=== PATIENT | female | born 1980 | race Caucasian/White ===

== ENCOUNTER 2016-09-28 06:13 | Emergency (ER) | payer SELFPAY ==
[2016-09-28 06:22] VITALS: BP 185/117
--- NOTE | 2016-09-28 06:54 | EDM.PDOC ---
ED HPI GENERAL MEDICAL PROBLEM - General Chief Complaint: Abdominal Pain Stated Complaint: ABDOMINAL PAIN Time Seen by Provider: 09/28/16 06:26 Source of Information: Reports: Patient, RN Notes Reviewed, Significant Other ( Boyfriend) History Limitations: Reports: No Limitations - History of Present Illness INITIAL COMMENTS - FREE TEXT/NARRATIVE: The patient states that she was lying on her couch around 06:00 this morning, when she developed sudden-onset upper abdominal pain, sharp in character. It did not radiate. The patient had some nausea, but no emesis, constipation, diarrhea, or urinary symptoms. The pain resolved just a few minutes ago, without treatment. Total duration approximately 30 minutes. No prior similar symptoms. The patient states that she last ate around 18:30 last evening. She states that she began her menses yesterday. The patient does not have a PCP. Epigastric Pain Score (Numeric/FACES): 8 - Related Data Allergies Allergy/AdvReac Type Severity Reaction Status Date / Time No Known Allergies Allergy Verified 09/28/16 06:22 Home Meds: Home Meds . [No Known Home Meds] 09/28/16 [History] Past Medical History Musculoskeletal 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: Fracture Other Musculoskeletal History: wrists bilateral, leg - Past Surgical History Female Surgical 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: D&C (x 1), Tubal Ligation Social & Family History - Tobacco Use Smoking Status *Q: Current Every Day Smoker Years of Tobacco use: 23 Packs/Tins Daily: 1 - Caffeine Use Caffeine Use: Reports: Soda - Alcohol Use Alcohol Use History: Yes Alcohol Use Frequency: Socially - Recreational Drug Use Recreational Drug Use: No - Living Situation & Occupation Living situation: Reports: Single, with Significant Other (Boyfriend), with Family (2 kids) Occupation: Unemployed ED ROS GENERAL - Review of Systems Review Of Systems: See Below Constitutional: Reports: No Symptoms HEENT: Reports: No Symptoms Respiratory: Reports: No Symptoms Cardiovascular: Reports: No Symptoms Endocrine: Reports: No Symptoms GI/Abdominal: Reports: No Symptoms : Reports: No Symptoms Musculoskeletal: Reports: No Symptoms Skin: Reports: No Symptoms Neurological: Reports: No Symptoms Psychiatric: Reports: No Symptoms Hematologic/Lymphatic: Reports: No Symptoms Immunologic: Reports: No Symptoms ED EXAM, GI/ABD - Physical Exam Exam: See Below Exam Limited By: No Limitations General Appearance: Alert, WD/WN, No Apparent Distress Eyes: Bilateral: Normal Appearance, EOMI Ears: Normal External Exam, Hearing Grossly Normal Nose: Normal Inspection, No Blood Throat/Mouth: Normal Inspection, Normal Lips, Normal Voice, No Airway Compromise Head: Atraumatic, Normocephalic Neck: Normal Inspection, Full Range of Motion Respiratory/Chest: No Respiratory Distress, Lungs Clear, Normal Breath Sounds, No Accessory Muscle Use Cardiovascular: Normal Peripheral Pulses, Regular Rate, Rhythm, No Gallop, No JVD, No Murmur, No Rub GI/Abdominal: Normal Bowel Sounds, Soft, No Organomegaly, No Distention, No Abnormal Bruit, No Mass, Tenderness (Mild to right pelvis only. Nontender elsewhere.), Other (Obese) (Female) Exam: Deferred Rectal (Female) Exam: Deferred Back Exam: Normal Inspection, Full Range of Motion. No: CVA Tenderness (L), CVA Tenderness (R) Extremities: Normal Inspection, Normal Range of Motion, No Pedal Edema, Normal Capillary Refill Neurological: Alert, Oriented, Normal Cognition, No Motor/Sensory Deficits Psychiatric: Normal Affect Skin Exam: Warm, Dry, Intact, Normal Color, No Rash Lymphatic: No Adenopathy Course - Vital Signs Last Recorded V/S: Last Vital Signs Temp 36.2 C 09/28/16 06:19 Pulse 62 09/28/16 06:19 Resp 22 H 09/28/16 06:19 BP 185/117 H 09/28/16 06:19 Pulse Ox 100 09/28/16 06:19 - Re-Assessments/Exams Free Text/Narrative Re-Assessment/Exam: 09/28/16 06:49 The patient reports upper abdominal pain that lasted approximately half an hour and has now completely resolved. Given the location and severity, I suspect that the patient passed a gallstone, although there is no way to be certain. A workup was offered, but declined, which I agree with. Departure - Departure Time of Disposition: 06:49 Disposition: Home, Self-Care 01 Condition: good Clinical Impression: Abdominal pain of unknown etiology - Discharge Information Instructions: Abdominal Pain, Adult, [id number] Referrals: PCP,None [Primary Care Provider] - Betty Mann PA-C [Physician Mushroom Packer] - Forms: ED Department Discharge Additional Instructions: You were seen in the emergency room for upper abdominal pain for about half an hour this morning. In the emergency room, your abdominal exam was unremarkable. While we can't be sure, it is MOST LIKELY that you passed a gallstone. Alternatively, your pain may have been due to acid reflux. If it happens again, you can followup with Betty Mann in the clinic for evaluation, or return to the ER.
== END 2016-09-28 06:59 | disposition home or self-care (01) ==
LOC: JD.ED 06:13
DX: R10.13 Epigastric pain (principal); F17.210 Nicotine dependence, cigarettes, uncomplicated; Z98.51 Tubal ligation status
CPT/HCPCS: 99282; 99284

== ENCOUNTER 2019-06-16 03:14 | Emergency (ER) | payer BC ==
[2019-06-16 03:37] VITALS: BP 134/96; PULSE 96
--- NOTE | 2019-06-16 04:18 | EDM.PDOC ---
ED HPI GENERAL MEDICAL PROBLEM - General Chief Complaint: Chest Pain Stated Complaint: CHEST PAIN Time Seen by Provider: 06/16/19 03:38 Source of Information: Reports: Patient, Family () History Limitations: Reports: No Limitations - History of Present Illness INITIAL COMMENTS - FREE TEXT/NARRATIVE: Mrs. Ortiz is a pleasant 39-year-old woman with a past medical history significant for difficulty hearing and bipolar affective disorder, who states that she has had a cough productive of bloody mucus, and painful respirations for the past 2 days. She developed a sensation of muscle tensing, and the development of 10-15 episodes of watery diarrhea around 23:30. She was woken from sleep with left-sided chest pain, felt under her breast, as well as to her left scapular area, left shoulder, and entire left upper extremity, all the way to her fingers, along with lightheadedness and feeling hot and cold, around 00: 30 this morning. She states that her left upper extremity has numbness that shoots into her left arm. No recent fever. No recent nausea, vomiting, or constipation. No recent abdominal pain or cramps. No urinary symptoms. No prior similar symptoms. The patient states that she used her albuterol MDI prior to coming to the ED, but no other home medicines. The patient does not have a PCP. Her Fighting Vehicle Infantryman is Dr. Kwesi Kilpatrick. She did not receive an influenza vaccine this season, and declined an offer to receive one here today. Chest Pain Score (Numeric/FACES): 6 - Related Data Allergies Allergy/AdvReac Type Severity Reaction Status Date / Time No Known Allergies Allergy Verified 06/16/19 03:37 Home Meds: Home Meds . [No Known Home Meds] 09/28/16 [History] Past Medical History HEENT 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: Hard of Hearing Genitourinary 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: Urinary Incontinence (stress incontinence) Musculoskeletal 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: Fracture (right clavicle, right forearm, bilateral wrists) Psychiatric 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: Bipolar (untreated) - Past Surgical History HEENT Surgical 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: Oral Surgery (wisdom teeth extraction) Female Surgical 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: D&C (x 1), Tubal Ligation Social & Family History - Tobacco Use Smoking Status *Q: Current Every Day Smoker Years of Tobacco use: 29 Packs/Tins Daily: 1 - Caffeine Use Caffeine Use: Reports: Soda - Alcohol Use Alcohol Use History: No - Recreational Drug Use Recreational Drug Use: Yes Drug Use in Last 12 Months: No Recreational Drug Type: Reports: Marijuana/Hashish (last smoked at 16 yrs old) - Living Situation & Occupation Living situation: Reports: , with Spouse, with Family (3 kids) Occupation: Employed ([employer]) ED ROS GENERAL - Review of Systems Review Of Systems: Comprehensive ROS is negative, except as noted in HPI. ED EXAM, GENERAL - Physical Exam Exam: See Below Exam Limited By: No Limitations General Appearance: Alert, WD/WN, Anxious Eye Exam: Bilateral Eye: EOMI, Normal Inspection Ears: Normal External Exam, Hearing Loss Nose: Normal Inspection Throat/Mouth: Normal Inspection, Normal Lips, Normal Voice, No Airway Compromise Head: Atraumatic, Normocephalic Neck: Normal Inspection, Full Range of Motion Respiratory/Chest: No Respiratory Distress, Lungs Clear, Normal Breath Sounds, No Accessory Muscle Use Cardiovascular: Normal Peripheral Pulses, No Edema, No Gallop, No JVD, No Murmur , No Rub, Tachycardia (regular) Peripheral Pulses: 4+: Radial (L), Radial (R) GI/Abdominal: Normal Bowel Sounds, Soft, Non-Tender, No Organomegaly, No Distention, No Abnormal Bruit, No Mass (Female) Exam: Deferred Rectal (Female) Exam: Deferred Back Exam: Normal Inspection, Full Range of Motion, NT Extremities: Normal Inspection, Normal Range of Motion, No Pedal Edema, Normal Capillary Refill Neurological: Alert, Oriented, Normal Cognition, No Motor/Sensory Deficits Psychiatric: Anxious Skin Exam: Warm, Dry, Intact, Normal Color, No Rash EKG INTERPRETATION EKG Date: 06/16/19 Time: 03:43 Rhythm: NSR Rate (Beats/Min): 88 [place]: Normal P-Wave: Present QRS: Normal ST-T: Normal QT: Normal Comparison: NA - No Prior EKG Course - Vital Signs Last Recorded V/S: Last Vital Signs Temp 37.1 C 06/16/19 03:34 Pulse 96 06/16/19 03:34 Resp 18 06/16/19 03:34 BP 134/96 H 06/16/19 03:34 Pulse Ox 98 06/16/19 03:34 Orthostatic Blood Pressure [ 131/94 Standing] Orthostatic Blood Pressure [ 132/91 Supine] - Orders/Labs/Meds Labs: Laboratory Tests 06/16/19 06/16/19 06/16/19 Range/Units 04:28 04:28 04:28 WBC 10.23 H (3.98-10.04) K/mm3 RBC 4.71 (3.98-5.22) M/mm3 Hgb 14.5 (11.2-15.7) gm/dl Hct 42.9 (34.1-44.9) % MCV 91.1 (79.4-94.8) fl MCH 30.8 (25.6-32.2) pg MCHC 33.8 (32.2-35.5) g/dl RDW Std Deviation 46.5 H (36.4-46.3) fL Plt Count 363 (182-369) K/mm3 MPV 9.5 (9.4-12.3) fl Neutrophils % (Manual) 73 H (40-60) % Band Neutrophils % 0 (0-10) % Lymphocytes % (Manual) 11 L (20-40) % Atypical Lymphs % 0 % Monocytes % (Manual) 14 H (2-10) % Eosinophils % (Manual) 1 (0.7-5.8) % Basophils % (Manual) 1 (0.1-1.2) Platelet Estimate Adequate RBC Morph Comment Normal D-Dimer, Quantitative 0.48 (0.19-0.50) mg/L Sodium 135 L (136-145) mEq/L Potassium 3.4 L (3.5-5.1) mEq/L Chloride 100 (98-107) mEq/L Carbon Dioxide 20 L (21-32) mEq/L Anion Gap 18.4 H (5-15) BUN 6 L (7-18) mg/dL Creatinine 1.1 H (0.55-1.02) mg/dL Est Cr Clr Drug Dosing 60.56 mL/min Estimated GFR (MDRD) 55 (>60) mL/min BUN/Creatinine Ratio 5.5 L (14-18) Glucose 115 H (74-106) mg/dL Calcium 9.5 (8.5-10.1) mg/dL Magnesium 1.9 (1.8-2.4) mg/dl Total Bilirubin 0.5 (0.2-1.0) mg/dL AST 19 (15-37) U/L ALT 36 (14-59) U/L Alkaline Phosphatase 96 (46-116) U/L Troponin I < 0.017 (0.00-0.056) ng/mL Total Protein 8.0 (6.4-8.2) g/dl Albumin 3.9 (3.4-5.0) g/dl Globulin 4.1 gm/dL Albumin/Globulin Ratio 1.0 (1-2) - Re-Assessments/Exams Free Text/Narrative Re-Assessment/Exam: 06/16/19 04:13 As above, the patient is reporting left-sided chest pain that radiates down her entire left upper extremity, made worse when she breathes, and she reports 2 days of cough, along with feeling lightheaded, hot and cold, with muscle tensing tonight. The patient is afebrile, and her oxygen saturation is within normal limits on room air, however, I am somewhat concerned that the patient may have pneumonia, therefore I have ordered a workup that includes blood work, an influenza swab, a chest x-ray, and orthostatics. I have also ordered a D- dimer to rule out a PE. While a cardiac etiology is highly unlikely, I added a troponin. 06/16/19 05:38 The patient is not orthostatic. 2-view chest radiograph appears to be grossly normal. The cardiac silhouette is within normal limits. No pulmonary vascular congestion. No pleural effusions. No focal infiltrate. No pneumothorax. A telemetry-lead plug is superimposed over the dome of the right hemidiaphragm on the PA view. Formal read per the Radiologist pending. The patient's CBC is remarkable for WBC count elevated at 10.23, but with 0% bandemia. The remainder of her CBC is unremarkable. Her CMP is remarkable for a sodium at the lower limits of normal of 135, and a potassium slightly depressed at 3.4. Her bicarbonate is mildly depressed at 20 with an anion gap mildly elevated at 18.4. Her creatinine is slightly elevated at 1.1, with a BUN normal at 6. Her blood glucose is slightly elevated at 115, with the remainder of her CMP being unremarkable. Her magnesium level is within normal limits at 1.9. Her troponin is undetectably low. Her D-dimer is within normal limits at 0.48. Her influenza swab returned negative. 06/16/19 05:45 Test results discussed with the patient and her . As above, today's workup is grossly unremarkable. The patient is likely suffering from a viral URI with cough. The patient is aware that there are no treatments for a viral URI, that he will just have to run its course. I advised against her taking any [id number] cough or cold remedies, as they have been shown to be of no benefit. Additionally, I advised the patient does not take albuterol unless she has shortness of breath and wheezing with or without a cough. The patient expressed understanding. The patient requested a note for work. Departure - Departure Time of Disposition: 05:47 Disposition: Home, Self-Care 01 Condition: Good Clinical Impression: Viral URI with cough - Discharge Information *PRESCRIPTION DRUG MONITORING PROGRAM REVIEWED*: Not Applicable *COPY OF PRESCRIPTION DRUG MONITORING REPORT IN PATIENT TINO: Not Applicable Instructions: Viral Respiratory Infection, [id number] Referrals: Maine Foreman MD [Physician] - Kwesi Kilpatrick MD [Physician] - Forms: ED Department Discharge, ED Return to Work/School Form Additional Instructions: You were seen in the emergency room for left-sided chest pain radiating to your left arm, with left arm numbness, painful breathing, cough, dizziness, feeling hot and cold, and muscle tensing. Workup in the ER included blood work, positional blood pressure checks, and influenza swab, a chest x-ray, and an ECG. Your entire workup was unremarkable. You do not have pneumonia. You are not dehydrated. You do not have a blood clot in your lungs. You do not have influenza. You have not suffered a heart attack. Based on your history, physical exam, and ER tests, you most likely have a viral URI with cough, also known as a common cold. As you are aware, there are no medicines to treat a common cold - it will have to run its course. As discussed, we recommend that you not take any [id number] cough or cold remedies, as they have been shown to be of no benefit, but do have side effects , such as a stomachache. As discussed, we recommend that you not take albuterol unless you're having shortness of breath with wheezing, with or without a cough. If any other problems, please do not hesitate to return to the ER. Sepsis Event Note - Evaluation Sepsis Screening Result: No Definite Risk - Focused Exam Date Exam was Performed: 06/21/19 Time Exam was Performed: 14:33
--- NOTE | 2019-06-16 08:33 | CR ---
Chest: Two views of the chest were obtained. Comparison: No prior chest imaging. Heart size and mediastinum are normal. Lungs are clear with no acute parenchymal change seen. Bony structures are unremarkable. Impression: 1. Nothing acute is seen on two-view chest x-ray. Diagnostic code #1 This report was dictated in [place] Standard Time
== END 2019-06-16 06:03 | disposition home or self-care (01) ==
LOC: JD.ED 03:14
DX: J06.9 Acute upper respiratory infection, unspecified (principal); F17.210 Nicotine dependence, cigarettes, uncomplicated
CPT/HCPCS: 36415; 71046; 71046-26; 80053; 83735; 84484; 85007; 85027; 85379; 87804; 93005; 93010; 99282; 99285-25

== ENCOUNTER 2020-05-11 18:13 | Emergency (ER) | payer BC ==
[2020-05-11] MEDS ORDERED: Alum Hydrox/Mag Hydrox/Simeth 30 ML, Lidocaine 2% 15 ML PO ONE ×2 (18:39)
[2020-05-11] MEDS ORDERED: Sodium Chloride 0.9% 10 ML Syringe FLUSH PRN (18:39)
[2020-05-11] MEDS ORDERED: Ondansetron 4 MG/2 ML SDV IVPUSH ONE (18:39)
[2020-05-11] MEDS ORDERED: HYDROmorphone 0.5 MG/0.5 ML Syringe IVPUSH ONE ×2 (18:39→19:57)
--- NOTE | 2020-05-11 18:46 | EDM.PDOC ---
ED HPI GENERAL MEDICAL PROBLEM - General Chief Complaint: Abdominal Pain Stated Complaint: [facility] Time Seen by Provider: 05/11/20 18:33 Source of Information: Reports: Patient, RN Notes Reviewed History Limitations: Reports: No Limitations - History of Present Illness INITIAL COMMENTS - FREE TEXT/NARRATIVE: Patient is a 39-year-old female who presents by [facility] for the evaluation of her abdomen pain. Patient is complaining of abdomen pain to her upper epigastric region, notes this at a 10 out of 10. She states that she has been throwing up for the past couple of days, but has not had any nausea or vomiting today. She notes that she was recently diagnosed with uterine cancer, but cannot recall when. Patient states that the pain is constant, and feels like her stomach is on fire. She has tried heartburn relief with some relief, but nothing seems to be helping today. Patient's primary care provider is Mariah Soliz. On general appearance, patient is very diaphoretic, and stating only "help me it hurts". She does answer questions appropriately when asked, but then reverts back to "help me it hurts". Patient is in no obvious distress on the cot. O2 sats are 95% on room air, blood pressure is 116/43, respiratory rate of 20 breaths/min, temperature is 96.2 F and her pulse is counted at 45 bpm. 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 Patient denies any sort of abdomen surgeries, but did have a tubal ligation Upper Abdominal Pain Score (Numeric/FACES): 10 - Related Data Allergies Allergy/AdvReac Type Severity Reaction Status Date / Time No Known Allergies Allergy Verified 05/11/20 18:14 Home Meds: Home Meds QUEtiapine [SEROquel] 1 tab PO BEDTIME 05/11/20 [History] Rosuvastatin [Crestor] 40 mg PO 05/11/20 [History] buPROPion [buPROPion XL] 150 mg PO BID 05/11/20 [History] lamoTRIgine [Lamotrigine] 25 mg PO DAILY 05/11/20 [History] Past Medical History HEENT 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: Hard of Hearing Cardiovascular 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: Heart Murmur Genitourinary 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: Urinary Incontinence 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 TECHNICIAN 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: , Other (See Below) Other ISOTOPE TECHNICIAN History: uterine cancer dx about one month ago Musculoskeletal 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: Fracture Other Musculoskeletal History: wrists bilateral, leg Psychiatric 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: Bipolar Endocrine/Metabolic 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: Obesity/BMI 30+ Hematologic 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: Anemia Oncologic (Cancer) 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: Uterine (recent diagnosis roughly 1 month ago) - Infectious Disease History Infectious Disease 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: Chicken Pox - Past Surgical History HEENT Surgical 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: Oral Surgery Female Surgical 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: D&C, Tubal Ligation Musculoskeletal Surgical 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: ORIF Other Musculoskeletal Surgeries/Procedures:: surgery on wrists Social & Family History - Family History Family Medical History: No Pertinent Family History - Tobacco Use Tobacco Use Status *Q: Current Every Day Tobacco User Years of Tobacco use: 30 Packs/Tins Daily: 0.5 - Caffeine Use Caffeine Use: Reports: None Other Caffeine Use: states quit couple weeks ago - Recreational Drug Use Recreational Drug Use: No - Living Situation & Occupation Living situation: Reports: , with Spouse, with Family (3 kids) Occupation: Employed ([employer]) ED ROS GENERAL - Review of Systems Review Of Systems: Comprehensive ROS is negative, except as noted in HPI. ED EXAM, GI/ABD - Physical Exam Exam: See Below Exam Limited By: Uncooperative (pt does answer questions and follow commands, but will not roll over on back for examination, all she states is "help me, it hurts") General Appearance: Alert, WD/WN, No Apparent Distress (pt is laying on her left side; slightly dramatic in presentation with generalized diaphoresis.) Respiratory/Chest: No Respiratory Distress, Lungs Clear, Normal Breath Sounds, No Accessory Muscle Use, Chest Non-Tender Cardiovascular: Normal Peripheral Pulses, Regular Rate, Rhythm, No Edema GI/Abdominal Exam: Normal Bowel Sounds, Soft, No Distention, No Mass, Tender (over entire abdomen, epigastrium seems to be the worst.) Extremities: Normal Inspection, Normal Capillary Refill Neurological: Alert Psychiatric: Flat Affect Skin Exam: Intact, Normal Color, No Rash, Diaphoretic (generalized; cool and clammy) #1 Interpretation EKG Date: 05/11/20 Time: 19:11 Rhythm: NSR (Sinus bradycardia) Rate (Beats/Min): 39 [place]: Normal P-Wave: Present QRS: Normal ST-T: Normal QT: Normal Comparison: Change From Previous EKG (Reviewed from June 2019) EKG Interpretation Comments: No obvious ischemia or acute ST changes noted, reviewed by myself and Dr. Beltrán. Course - Vital Signs Last Recorded V/S: Last Vital Signs Temp 96.5 F L 05/11/20 21:20 Pulse 45 L 05/11/20 21:20 Resp 16 05/11/20 21:20 BP 170/75 H 05/11/20 19:22 Pulse Ox 97 05/11/20 21:20 - Orders/Labs/Meds Orders: Active Orders 24 hr Category Date Time Status EKG Documentation Completion [RC] STAT Care 05/11/20 18:39 Active Peripheral IV Care [RC] . DIRECTED Care 05/11/20 18:39 Active Chest 1V Frontal [CR] Stat Exams 05/11/20 18:39 Taken Chest Abdomen Pelvis w Cont [CT] Stat Exams 05/11/20 19:56 Taken CULTURE BLOOD [BC] Stat Lab 05/11/20 21:24 Ordered CULTURE BLOOD [BC] Stat Lab 05/11/20 21:24 Ordered Potassium Chloride [KCl 10 MEQ in Water 100 ML] 10 meq Med 05/11/20 21:15 Ordered Premix Bag 1 bag IV Q1H Sodium Chloride 0.9% [Normal Saline] 1,000 ml Med 05/11/20 21:19 Ordered IV ONETIME Sodium Chloride 0.9% [Normal Saline] 100 ml Med 05/11/20 20:45 Active IV ASDIRECTED Sodium Chloride 0.9% [Saline Flush] Med 05/11/20 18:39 Active 10 ml FLUSH ASDIRECTED PRN Blood Culture x2 Reflex Set [OM.PC] Stat Oth 05/11/20 21:24 Ordered Peripheral IV Insertion Adult [OM.PC] Stat Oth 05/11/20 18:39 Ordered Medication Orders Sodium Chloride (Normal Saline) 100 mls @ 100 drops/min IV ASDIRECTED ROBERT Last Admin: 05/11/20 20:46 Dose: 100 drops/min Documented by: MONSE Potassium Chloride 10 meq/ (Premix) 100 mls @ 100 mls/hr IV Q1H ROBERT Stop: 05/12/20 01:14 Last Admin: 05/11/20 21:19 Dose: 100 mls/hr Documented by: [place] Sodium Chloride (Normal Saline) 1,000 mls @ 999 mls/hr IV ONETIME ONE Stop: 05/11/20 22:19 Sodium Chloride (Saline Flush) 10 ml FLUSH ASDIRECTED PRN PRN Reason: Keep Vein Open Last Admin: 05/11/20 18:54 Dose: 10 ml Documented by: JM Labs: Laboratory Tests 05/11/20 05/11/20 05/11/20 Range/Units 18:20 18:20 18:20 WBC 20.86 H (3.98-10.04) K/mm3 RBC 4.87 (3.98-5.22) M/mm3 Hgb 15.3 (11.2-15.7) gm/dl Hct 46.1 H (34.1-44.9) % MCV 94.7 (79.4-94.8) fl MCH 31.4 (25.6-32.2) pg MCHC 33.2 (32.2-35.5) g/dl RDW Std Deviation 45.1 (36.4-46.3) fL Plt Count 425 H D (182-369) K/mm3 MPV 10.2 (9.4-12.3) fl Neut % (Auto) 72.1 H (34.0-71.1) % Lymph % (Auto) 16.5 L (19.3-51.7) % [place] % (Auto) 9.3 (4.7-12.5) % Eos % (Auto) 1.5 (0.7-5.8) Baso % (Auto) 0.3 (0.1-1.2) % Neut # (Auto) 15.02 H (1.56-6.13) K/mm3 Lymph # (Auto) 3.44 (1.18-3.74) K/mm3 [place] # (Auto) 1.95 H (0.24-0.36) K/mm3 Eos # (Auto) 0.32 (0.04-0.36) K/mm3 Baso # (Auto) 0.06 (0.01-0.08) K/mm3 Manual Slide Review Abnormal smear PT 10.4 (9.7-12.0) SECONDS INR 0.97 APTT 23.0 (21.7-31.4) SECONDS Sodium 139 (136-145) mEq/L Potassium 3.0 L (3.5-5.1) mEq/L Chloride 102 (98-107) mEq/L Carbon Dioxide 23 (21-32) mEq/L Anion Gap 17.0 H (5-15) BUN 8 (7-18) mg/dL Creatinine 1.1 H (0.55-1.02) mg/dL Est Cr Clr Drug Dosing 60.56 mL/min Estimated GFR (MDRD) 55 (>60) mL/min BUN/Creatinine Ratio 7.3 L (14-18) Glucose 173 H (74-106) mg/dL Calcium 9.0 (8.5-10.1) mg/dL Magnesium 2.0 (1.8-2.4) mg/dl Total Bilirubin 1.4 H (0.2-1.0) mg/dL GGT (5-55) U/L AST 259 H (15-37) U/L ALT 498 H (14-59) U/L Alkaline Phosphatase 326 H (46-116) U/L Troponin I < 0.017 (0.00-0.056) ng/mL NT-Pro-B Natriuret Pep (0-125) pg/mL Total Protein 7.6 (6.4-8.2) g/dl Albumin 3.7 (3.4-5.0) g/dl Globulin 3.9 gm/dL Albumin/Globulin Ratio 1.0 (1-2) Lipase (73-393) U/L Ethyl Alcohol (0.00) gm% Influenza Type A RNA (NEGATIVE) Influenza Type B RNA (NEGATIVE) SARS-CoV-2 RNA (PHAM) (NEGATIVE) 05/11/20 05/11/20 05/11/20 Range/Units 18:20 18:20 18:20 WBC (3.98-10.04) K/mm3 RBC (3.98-5.22) M/mm3 Hgb (11.2-15.7) gm/dl Hct (34.1-44.9) % MCV (79.4-94.8) fl MCH (25.6-32.2) pg MCHC (32.2-35.5) g/dl RDW Std Deviation (36.4-46.3) fL Plt Count (182-369) K/mm3 MPV (9.4-12.3) fl Neut % (Auto) (34.0-71.1) % Lymph % (Auto) (19.3-51.7) % [place] % (Auto) (4.7-12.5) % Eos % (Auto) (0.7-5.8) Baso % (Auto) (0.1-1.2) % Neut # (Auto) (1.56-6.13) K/mm3 Lymph # (Auto) (1.18-3.74) K/mm3 [place] # (Auto) (0.24-0.36) K/mm3 Eos # (Auto) (0.04-0.36) K/mm3 Baso # (Auto) (0.01-0.08) K/mm3 Manual Slide Review PT (9.7-12.0) SECONDS INR APTT (21.7-31.4) SECONDS Sodium (136-145) mEq/L Potassium (3.5-5.1) mEq/L Chloride (98-107) mEq/L Carbon Dioxide (21-32) mEq/L Anion Gap (5-15) BUN (7-18) mg/dL Creatinine (0.55-1.02) mg/dL Est Cr Clr Drug Dosing mL/min Estimated GFR (MDRD) (>60) mL/min BUN/Creatinine Ratio (14-18) Glucose (74-106) mg/dL Calcium (8.5-10.1) mg/dL Magnesium (1.8-2.4) mg/dl Total Bilirubin (0.2-1.0) mg/dL GGT 715 H (5-55) U/L AST (15-37) U/L ALT (14-59) U/L Alkaline Phosphatase (46-116) U/L Troponin I (0.00-0.056) ng/mL NT-Pro-B Natriuret Pep 125 (0-125) pg/mL Total Protein (6.4-8.2) g/dl Albumin (3.4-5.0) g/dl Globulin gm/dL Albumin/Globulin Ratio (1-2) Lipase 50484 H (73-393) U/L Ethyl Alcohol 0.00 (0.00) gm% Influenza Type A RNA (NEGATIVE) Influenza Type B RNA (NEGATIVE) SARS-CoV-2 RNA (PHAM) (NEGATIVE) 05/11/20 Range/Units 20:53 WBC (3.98-10.04) K/mm3 RBC (3.98-5.22) M/mm3 Hgb (11.2-15.7) gm/dl Hct (34.1-44.9) % MCV (79.4-94.8) fl MCH (25.6-32.2) pg MCHC (32.2-35.5) g/dl RDW Std Deviation (36.4-46.3) fL Plt Count (182-369) K/mm3 MPV (9.4-12.3) fl Neut % (Auto) (34.0-71.1) % Lymph % (Auto) (19.3-51.7) % [place] % (Auto) (4.7-12.5) % Eos % (Auto) (0.7-5.8) Baso % (Auto) (0.1-1.2) % Neut # (Auto) (1.56-6.13) K/mm3 Lymph # (Auto) (1.18-3.74) K/mm3 [place] # (Auto) (0.24-0.36) K/mm3 Eos # (Auto) (0.04-0.36) K/mm3 Baso # (Auto) (0.01-0.08) K/mm3 Manual Slide Review PT (9.7-12.0) SECONDS INR APTT (21.7-31.4) SECONDS Sodium (136-145) mEq/L Potassium (3.5-5.1) mEq/L Chloride (98-107) mEq/L Carbon Dioxide (21-32) mEq/L Anion Gap (5-15) BUN (7-18) mg/dL Creatinine (0.55-1.02) mg/dL Est Cr Clr Drug Dosing mL/min Estimated GFR (MDRD) (>60) mL/min BUN/Creatinine Ratio (14-18) Glucose (74-106) mg/dL Calcium (8.5-10.1) mg/dL Magnesium (1.8-2.4) mg/dl Total Bilirubin (0.2-1.0) mg/dL GGT (5-55) U/L AST (15-37) U/L ALT (14-59) U/L Alkaline Phosphatase (46-116) U/L Troponin I (0.00-0.056) ng/mL NT-Pro-B Natriuret Pep (0-125) pg/mL Total Protein (6.4-8.2) g/dl Albumin (3.4-5.0) g/dl Globulin gm/dL Albumin/Globulin Ratio (1-2) Lipase (73-393) U/L Ethyl Alcohol (0.00) gm% Influenza Type A RNA Negative (NEGATIVE) Influenza Type B RNA Negative (NEGATIVE) SARS-CoV-2 RNA (PHAM) Negative (NEGATIVE) Meds: Medications Generic Name Dose Route Start Last Admin Trade Name Luke PRN Reason Stop Dose Admin Sodium Chloride 100 mls @ 100 drops/min 05/11/20 20:45 05/11/20 20:46 Normal Saline IV 100 drops/min ASDIRECTED ROBERT Administration Potassium Chloride 10 meq/ 100 mls @ 100 mls/hr 05/11/20 21:15 05/11/20 21:19 Premix IV 05/12/20 01:14 100 mls/hr Q1H ROBERT Administration Sodium Chloride 1,000 mls @ 999 mls/hr 05/11/20 21:19 Normal Saline IV 05/11/20 22:19 ONETIME ONE Sodium Chloride 10 ml 05/11/20 18:39 05/11/20 18:54 Saline Flush FLUSH 10 ml ASDIRECTED PRN Administration Keep Vein Open Discontinued Medications Generic Name Dose Route Start Last Admin Trade Name Luke PRN Reason Stop Dose Admin Al Hydroxide/Mg Hydroxide 30 0 ml 05/11/20 18:39 05/11/20 18:57 ml/ Lidocaine HCl 15 ml PO 05/11/20 18:40 45 ml ONETIME ONE Administration Fentanyl 50 mcg 05/11/20 21:36 Sublimaze IVPUSH 05/11/20 21:37 ONETIME ONE Hydromorphone HCl 0.5 mg 05/11/20 18:39 05/11/20 18:54 Dilaudid IVPUSH 05/11/20 18:40 0.5 mg ONETIME ONE Administration Hydromorphone HCl 0.5 mg 05/11/20 19:57 05/11/20 20:21 Dilaudid IVPUSH 05/11/20 19:58 0.5 mg ONETIME ONE Administration Sodium Chloride 1,000 mls @ 999 mls/hr 05/11/20 19:57 05/11/20 20:23 Normal Saline IV 05/11/20 20:57 999 mls/hr ONETIME ONE Administration Promethazine HCl 25 mg/ Sodium 51 mls @ 100 mls/hr 05/11/20 19:57 05/11/20 20:23 Chloride IV 05/11/20 20:27 100 mls/hr ONETIME ONE Administration Iopamidol 50 ml 05/11/20 20:32 05/11/20 20:46 Isovue-370 (76%) IVPUSH 05/11/20 20:33 50 ml ONETIME ONE Administration Iopamidol 100 ml 05/11/20 20:32 05/11/20 20:46 Isovue-370 (76%) IVPUSH 05/11/20 20:33 100 ml ONETIME ONE Administration Ondansetron HCl 4 mg 05/11/20 18:39 05/11/20 18:50 Zofran IVPUSH 05/11/20 18:40 4 mg ONETIME ONE Administration Potassium Chloride 40 meq 05/11/20 19:34 Klor-Con M20 PO 05/11/20 19:35 ONETIME ONE - Re-Assessments/Exams Free Text/Narrative Re-Assessment/Exam: 05/11/20 18:47 Patient presents to the ED for her abdomen pain. Not sure exactly what is going on at this moment, it does appear that her abdomen is the source of her pain. Seems in the epigastrium. 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 05/11/20 19:39 Patient's labs have resulted, white cell count is elevated at 20.86, 72% neutrophils. Potassium mildly low at 3.0. Bili elevated at 1.4, GGT elevated at 715, AST at 259, ALT elevated at 498, ALP elevated at 326, troponin is within normal limits. EKG was done and does just show sinus bradycardia this was reviewed with Dr. Armando from her previous EKG done in June 2019, he states that the bradycardia may be due to vagal pain response and is nonspecific. Blood pressure is still okay at 166. I did just get off the phone with the patient's he states that they were having some issues for possible gallbladder etiology. She has been staying away from foods that are fatty, and or sodas they did [facility] and did have steak tips and burgers, and the patient developed severe abdomen pain after the dinner. Other than this, notes the patient does not drink alcohol, and smokes m arijuana only on occasion. Been also notes that the patient has an aneurysm on her aorta, she was evaluated for this, and notes this is just being observed. Did order abdomen pelvis CT with contrast. And 40 mEq p.o. potassium for supplementation at this time. 05/11/20 19:58 Patient was checked at bedside, and she states she still having quite a bit of pain and some nausea again. We will give her 25 of Phenergan, and repeat another 0.5 mg of Dilaudid. I did change the CT order to chest abdomen pelvis with contrast, due to the reports that she does have an aortic aneurysm. 05/11/20 21:07 The patient's lipase is markedly elevated at 64,608. CT has been done, and I can appreciate some stones in the gallbladder, and inflammation around the pancreas, which again with the lipase findings is suggestive of pancreatitis/biliary complications. I am awaiting CT report at this time. 05/11/20 21:48 She is Covid screen did come back negative. I have been in contact with our surgeon, Dr. Miguel Latham and he does suggest transfer to higher level care due to the CT results, CT does demonstrate an ascending aorta dilated at 4.6 cm, no dissection clear lungs and pleural space. Acute pancreatitis. Gallstones with no definable choledocholithiasis. Common bile duct is dilated at 12 mm. The liver change along with some minor small bowel ileus. I did call [facility] in [place], and I am try to get a hold of Dr. Mg, hospitalist injection molder, for admission and transfer. Departure - Departure Time of Disposition: 21:49 Disposition: Home, Self-Care 01 Condition: Good Clinical Impression: Pancreatitis, gallstone, Common bile duct dilatation - Discharge Information Referrals: PCP,Unknown [Ordering Only Provider] - Forms: ED Department Discharge Sepsis Event Note (ED) - Evaluation Sepsis Screening Result: No Definite Risk - Focused Exam Vital Signs: Vital Signs Temp Pulse Resp BP Pulse Ox 05/11/20 21:20 96.5 F L 45 L 16 97 05/11/20 19:22 40 L 18 170/75 H 95 05/11/20 18:20 96.2 F L 45 L 20 116/43 L 95 - My Orders Last 24 Hours: My Active Orders 05/11/20 18:39 EKG Documentation Completion [RC] STAT Peripheral IV Care [RC] . DIRECTED Chest 1V Frontal [CR] Stat Sodium Chloride 0.9% [Saline Flush] 10 ml FLUSH ASDIRECTED PRN Peripheral IV Insertion Adult [OM.PC] Stat 05/11/20 19:56 Chest Abdomen Pelvis w Cont [CT] Stat 05/11/20 20:45 Sodium Chloride 0.9% [Normal Saline] 100 ml IV ASDIRECTED 05/11/20 21:15 Potassium Chloride [KCl 10 MEQ in Water 100 ML] 10 meq Premix Bag 1 bag IV Q1H 05/11/20 21:19 Sodium Chloride 0.9% [Normal Saline] 1,000 ml IV ONETIME 05/11/20 21:24 CULTURE BLOOD [BC] Stat CULTURE BLOOD [BC] Stat Blood Culture x2 Reflex Set [OM.PC] Stat - Assessment/Plan Last 24 Hours: My Active Orders 05/11/20 18:39 EKG Documentation Completion [RC] STAT Peripheral IV Care [RC] . DIRECTED Chest 1V Frontal [CR] Stat Sodium Chloride 0.9% [Saline Flush] 10 ml FLUSH ASDIRECTED PRN Peripheral IV Insertion Adult [OM.PC] Stat 05/11/20 19:56 Chest Abdomen Pelvis w Cont [CT] Stat 05/11/20 20:45 Sodium Chloride 0.9% [Normal Saline] 100 ml IV ASDIRECTED 05/11/20 21:15 Potassium Chloride [KCl 10 MEQ in Water 100 ML] 10 meq Premix Bag 1 bag IV Q1H 05/11/20 21:19 Sodium Chloride 0.9% [Normal Saline] 1,000 ml IV ONETIME 05/11/20 21:24 CULTURE BLOOD [BC] Stat CULTURE BLOOD [BC] Stat Blood Culture x2 Reflex Set [OM.PC] Stat
[2020-05-11] MEDS ORDERED: Potassium Chloride 20 MEQ Tab.ER PO ONE (19:34)
[2020-05-11] MEDS ORDERED: Promethazine 25 MG in Sodium Chloride 0.9% 50 ML IV ONE (19:57)
[2020-05-11] MEDS ORDERED: Sodium Chloride 0.9% 1,000 ML IV ONE ×2 (19:57→21:19)
[2020-05-11] MEDS ORDERED: Iopamidol 755 MG/ML 50 ML Bottle IVPUSH ONE (20:32)
[2020-05-11] MEDS ORDERED: Iopamidol 755 Mg/ML 100 ML Bottle IVPUSH ONE (20:32)
[2020-05-11] MEDS ORDERED: Sodium Chloride 0.9% 100 ML IV SCH (20:45)
[2020-05-11] MEDS: Potassium Chloride 10 MEQ in Premix Bag 1 BAG IV SCH ×2 (21:19→22:40)
[2020-05-11 21:36] LABS: CORONAVIRUS COVID-19 NAA NEGATIVE (NEGATIVE)
[2020-05-11] MEDS ORDERED: fentaNYL 100 MCG/2 ML SDV IVPUSH ONE (21:36)
[2020-05-11 22:03] VITALS: BP 197/91; PULSE 47
[2020-05-11] MEDS ORDERED: Piperacillin/Tazobactam 4.5 GM in Sodium Chloride 0.9% 100 ML IV ONE (22:05)
--- NOTE | 2020-05-12 09:48 | CR ---
Chest: Portable view of the chest was obtained. Comparison: Prior chest x-ray of 06/16/[address] study performed later on the same day Heart size and mediastinum are normal. Lungs are clear with no acute parenchymal change. No discrete bony abnormality is appreciated. Previous ascending aortic aneurysm is not appreciated on this study. Impression: 1. Nothing acute is seen on portable chest x-ray. Diagnostic code #1
--- NOTE | 2020-05-12 09:55 | CT ---
CT chest Technique: Multiple axial sections were obtained from above the lung apices inferiorly through the lung bases. Intravenous contrast was utilized. Reconstructed coronal and sagittal images were obtained. Findings: Ascending aorta is aneurysmal with AP dimension of about 4.9 cm. Descending aorta measures normal. No intimal flap is seen within the thoracic aorta. No mediastinal adenopathy is seen. No pericardial thickening is appreciated. Lungs are clear with no acute parenchymal change. No pleural effusions or pneumothorax are appreciated. Bone window settings were reviewed which show no acute osseous finding. Impression: 1. Aneurysmal ascending aorta with AP dimension of 4.9 cm. 2. No dissection or other abnormality is appreciated. Diagnostic code #3 I agree with preliminary report from [facility], finalized on 05/11/20, 10:[address] abdomen and pelvis Technique: Multiple axial sections were obtained from above the dome of the diaphragm inferiorly through the pubic symphysis. Intravenous contrast was utilized. No oral contrast has been given. Reconstructed coronal and sagittal images were reviewed. Delayed images were also obtained from the top of the liver inferiorly through the pubic symphysis. Findings: Prominent edema is noted around the pancreas. There is an area of decreased enhancement noted within the body and tail of the pancreas. Edema extends into portions of the mesentery and along the anterior left pararenal space. No ascites is seen within the pelvis. Liver contains no focal abnormality but shows mild fatty infiltration. Spleen appears normal. Small hiatal hernia is seen. Adrenal glands show no nodules. Kidneys show symmetric contrast enhancement without hydronephrosis or mass. Delayed images show contrast within the ureters and within the bladder. Aorta shows mild atherosclerotic change without aneurysm. No retroperitoneal adenopathy or mesenteric abnormalities are appreciated. No findings of appendicitis are seen. Gallstones are seen within the gallbladder. CBD is slightly dilated at 1.0 cm. Slightly prominent loops of small bowel are seen most likely representing ileus. Bone window settings were reviewed which show no acute osseous finding. Impression: 1. Fairly prominent fluid around the pancreas extending into the mesentery. Diminished enhancement within portions of the body and tail of the pancreas. These findings are compatible with fairly severe pancreatitis. 2. Fatty infiltration within the liver. 3. Gallstones are present with slightly prominent CBD at 1.0 cm. 4. Slightly prominent small bowel compatible with ileus from the pancreatitis. Diagnostic code #3 I agree with preliminary report from [facility], finalized on 05/11/20, 10:29 PM EQUITIES ANALYST
== END 2020-05-11 23:10 | disposition home or self-care (01) ==
LOC: JD.ED 18:13
DX: K85.90 Acute pancreatitis without necrosis or infection, unspecified (principal); K80.20 Calculus of gallbladder without cholecystitis without obstruction; K83.8 Other specified diseases of biliary tract; D72.829 Elevated white blood cell count, unspecified; F31.9 Bipolar disorder, unspecified; F17.210 Nicotine dependence, cigarettes, uncomplicated; R00.1 Bradycardia, unspecified; E66.9 Obesity, unspecified; Z68.31 Body mass index [BMI] 31.0-31.9, adult; Z79.899 Other long term (current) drug therapy; Z20.822 Contact with and (suspected) exposure to COVID-19
CPT/HCPCS: 0240U; 36415; 71045; 71260; 74177; 80053; 80179; 82977; 83690; 83735; 83880; 84484; 85025; 85610; 85730; 87040; 93005; 96365; 96366; 96367; 96368; 96375; 96376; 99285; A9270; J1170; J2405; J2543; J2550; J3010; J3480; J7030; J7050; Q9967; 93010; 99284

== ENCOUNTER 2020-09-10 07:17 | Day surgery (SDC) | payer BC ==
--- NOTE | 2020-09-09 07:52 | PCM.PREANE ---
Preanesthetic Assessment - Procedure Proposed Procedure: Laparoscopic Assisted Vaginal Hysterectomy and midurethral sling - Anesthesia/Transfusion/Family Hx Anesthesia History: Prior Anesthesia Without Reaction Family History of Anesthesia Reaction: No Transfusion History: No Prior Transfusion(s) Intubation History: Unknown - Review of Systems General: No Symptoms Pulmonary: No Symptoms (smoker: smokes less than 1ppd times 30 years seasonal asthma: last took inhaler yesterday.), Cough Cardiovascular: No Symptoms (History of ascending aortic aneurysm: 4.9cm (asymptomatic)/ elevated lipids/HTN) Gastrointestinal: No Symptoms Neurological: No Symptoms, Headache (migraines) Other: Reports: None (bipolar disorder), Liver Problems (acute necrotizing pancreatitis and pancreatic pseudocyst/fatty liver), Depression, Anxiety - Physical Assessment NPO Status Date: 09/09/20 NPO Status Time: 22:00 Vital Signs: HR: 72 Sat: 96% Temp: 97.2 Resp: 16 B/P: 119/82 Height: 1.65 m Weight: 80 kg ASA Class: 3 Mental Status: Alert & Oriented x3 Airway Class: Mallampati = 2 Dentition: Reports: Dentures (partial upper) Thyro-Mental Finger Breadths: 3 Mouth Opening Finger Breadths: 3 ROM/Head Extension: Full Lungs: Clear to Auscultation, Normal Respiratory Effort Cardiovascular: Regular Rate, Regular Rhythm, No Murmurs - Lab Values: All labs reviewed and noted and within acceptable ranges to proceed with scheduled procedure. - Imaging/EKG Impressions: CXR: negative EKG: SB rate= 53, borderline Q's in III, and AVF that may be a normal variant CT chest: 05/2020: aortic aneurysm 4.9cm not dissecting. Echocardiogram: EF= 60-65%, mild/moderate aortic regurgitation - Allergies Allergies/Adverse Reactions: Allergies Allergy/AdvReac Type Severity Reaction Status Date / Time No Known Allergies Allergy Verified 09/08/20 14:41 - Anesthesia Plan Pre-Op Medication Ordered: None - Acknowledgements Anesthesia Type Planned: General Anesthesia Pt an Appropriate Candidate for the Planned Anesthesia: Yes Alternatives and Risks of Anesthesia Discussed w Pt/Guardian: Yes Pt/Guardian Understands and Agrees with Anesthesia Plan: Yes PreAnesthesia Questionnaire HEENT 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: Hard of Hearing, Other (See Below) Other HEENT History: has dentures, blurred vision Cardiovascular 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: Heart Murmur, High Cholesterol, Hypertension, Other (See Below) Other Cardiovascular History: dialating aortic ascending aneurysm Respiratory 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: Asthma Gastrointestinal 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: Pancreatitis Genitourinary 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: Urinary Incontinence [employer]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: , Other (See Below) Other OB/BYN History: ASCUS, CINI, heavy menses Musculoskeletal 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: Fracture Other Musculoskeletal History: right plantar fasciitis, left shoulder pain Neurological 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: Headaches, Chronic, Migraines Psychiatric 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: Anxiety, Bipolar Endocrine/Metabolic 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: Obesity/BMI 30+, Vitamin D Deficiency Hematologic 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: Anemia Immunologic 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: None Oncologic (Cancer) 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: Uterine Dermatologic 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: None - Infectious Disease History Infectious Disease 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: None - Past Surgical History Head Surgeries/Procedures: Reports: None HEENT Surgical 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: Oral Surgery Cardiovascular Surgical 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: None Respiratory Surgical 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: None GI Surgical 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: Cholecystectomy, Colonoscopy, EGD, Other (See Below) Other GI Surgeries/Procedures: pancreatic pseudocyst debridement, biliary stent placement and later removal Female Surgical 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: D&C, Tubal Ligation Endocrine Surgical 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: None Neurological Surgical 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: None Musculoskeletal Surgical 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: ORIF Other Musculoskeletal Surgeries/Procedures:: surgery on wrists Oncologic Surgical 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: None Dermatological Surgical 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: None - SUBSTANCE USE Tobacco Use Status *Q: Current Every Day Tobacco User Recreational Drug Use History: No - HOME MEDS Home Medications: Home Meds QUEtiapine [SEROquel] 100 mg PO BEDTIME 05/11/20 [History] Rosuvastatin [Crestor] 40 mg PO BEDTIME 05/11/20 [History] buPROPion [buPROPion XL] 150 mg PO DAILY 05/11/20 [History] lamoTRIgine [Lamotrigine] 25 mg PO DAILY 05/11/20 [History] - CURRENT (IN HOUSE) MEDS Current Meds: Current Medications Lactated Ringer's (Ringers, Lactated) 1,000 mls @ 125 mls/hr IV ASDIRECTED ROBERT Stop: 09/10/20 23:00 Lidocaine/Sodium Bicarbonate (Lidocaine 1%/Sod Bicarbonate In Ns 8.4% 1 Ml Syringe) 0.25 ml IDERM ONETIME PRN PRN Reason: Prior to IV Start Stop: 09/10/20 18:00 Sodium Chloride (Sodium Chloride 0.9% 10 Ml Syringe) 10 ml FLUSH ASDIRECTED PRN PRN Reason: Keep Vein Open Stop: 09/10/20 18:00
[~2020-09-10 07:17] MED LIST: Albuterol 0.083% 2.5 MG/3 ML Neb Soln NEB PRN; Lactated Ringers 1,000 ML IV SCH; Lidocaine 1%/Sod Bicarbonate in NS 8.4% 1 ML Syringe IDERM PRN; Sodium Chloride 0.9% 10 ML Syringe FLUSH PRN
[2020-09-10] MEDS ORDERED: Ketorolac 30 MG/ML SDV ONE (07:24)
[2020-09-10] MEDS ORDERED: HYDROmorphone 0.5 MG/0.5 ML Syringe ONE ×2 (07:24→09:30)
[2020-09-10] MEDS ORDERED: Dexamethasone 4 MG/ML 5 ML MDV ONE (07:24)
[2020-09-10] MEDS ORDERED: Lactated Ringers 1,000 ML ONE ×2 (07:24→09:33)
[2020-09-10] MEDS ORDERED: Lidocaine 1% 4 ML ONE (07:24)
[2020-09-10] MEDS ORDERED: ceFAZolin 1 GM Vial ONE (07:24)
[2020-09-10] MEDS ORDERED: Ondansetron 4 MG/2 ML SDV ONE (07:24)
[2020-09-10] MEDS ORDERED: Rocuronium 50 MG/5 ML Vial ONE (07:24)
[2020-09-10] MEDS ORDERED: fentaNYL 250 MCG/5 ML SDV ONE (07:25)
[2020-09-10] MEDS ORDERED: Midazolam 1 MG/ML 2 ML SDV ONE (07:25)
[2020-09-10] MEDS ORDERED: Propofol 200 MG/20 ML SDV ONE (07:25)
[2020-09-10] MEDS ORDERED: Sodium Chloride 0.9% 50 ML SDV ONE (07:38)
[2020-09-10] MEDS ORDERED: Bupivacaine 0.5% 30 ML SDV ONE (07:38)
[2020-09-10] MEDS ORDERED: Lidocaine 1% with EPINEPHrine 1:100,000 10 ML MDV ONE (07:38)
[2020-09-10] MEDS ORDERED: diphenhydrAMINE 50 MG/ML SDV IVPUSH PRN (08:31)
[2020-09-10] MEDS ORDERED: ePHEDrine 50 MG/ML SDV IVPUSH PRN (08:31)
[2020-09-10] MEDS ORDERED: fentaNYL 100 MCG/2 ML SDV IVPUSH PRN (08:31)
[2020-09-10] MEDS ORDERED: Ondansetron 4 MG/2 ML SDV IVPUSH PRN (08:31)
[2020-09-10] MEDS ORDERED: Albuterol 0.083% 2.5 MG/3 ML Neb Soln NEB PRN (08:31)
[2020-09-10] MEDS ORDERED: HYDROmorphone 0.5 MG/0.5 ML Syringe IVPUSH PRN (08:31)
--- NOTE | 2020-09-10 10:21 | PCM.POSTAN ---
POST ANESTHESIA ASSESSMENT - MENTAL STATUS Mental Status: Alert - VITAL SIGNS Vital Signs: Last Vital Signs Temp 98.9 09/10/20 1016 Pulse 77 09/10/20 1016 Resp 15 09/10/20 1016 BP 117/80 09/10/20 1016 Pulse Ox 95% 09/10/20 1016 - RESPIRATORY Respiratory Status: Respiratory Rate WNL, Airway Patent, O2 Saturation Stable - CARDIOVASCULAR CV Status: Pulse Rate WNL, Blood Pressure Stable - GASTROINTESTINAL GI Status: No Symptoms - POST OP HYDRATION Hydration Status: Adequate & Stable
--- NOTE | 2020-09-10 10:25 | PCM.OPNOTE ---
- General Post-Op/Procedure Note Date of Surgery/Procedure: 09/10/20 Operative Procedure(s): Laparoscopic-assisted vaginal hysterectomy with bilateral salpingectomy of remaining distal portion of the fallopian tube and transvaginal tape mid urethral sling Findings: Grossly normal-appearing uterus with surgically absent mid portions of the fallopian tube. Grossly normal-appearing distal portions of the fallopian tube that were removed. Grossly normal-appearing ovaries bilaterally with suspected physiologic cyst noted in the left ovary measuring approximately 1 cm. Omental adhesion from the omentum to the superior umbilicus. Grossly normal-appearing right lobe of the liver and visualized portions of the intestines. Pre Op Diagnosis: CHATO-3, abnormal Pap smear, menorrhagia and stress urinary incontinence Post-Op Diagnosis: Same Anesthesia Technique: General ET Tube Primary Surgeon: Ervin Lang Anesthesia Provider: Guillermina Monsivais Poultry Hatchery Manager: Tyler Sue Reason Poultry Hatchery Manager Was Necessary: Patient safety and reduction of morbidity and mortality Role of Poultry Hatchery Manager: Use of laparoscopic instruments during the procedure and retraction for visualization Pathology: Uterus, bilateral portions of fallopian tubes and cervix Fluid Replacement, Intraop: 1,400 Output, Urine Amount: 100 EBL in mLs: 300 Complications: None Condition: Good Free Text/Narrative:: The patient was seen in the preoperative holding area and risks, benefits, indications, and alternatives of the procedure were reviewed with the patient and she desired to proceed with a laparoscopic assisted vaginal hysterectomy, bilateral salpingectomy, possible unilateral or bilateral salpingo-oophorectomy, transvaginal mid-urethral sling and possible total abdominal hysterectomy. Consents were reviewed. The patient was taken back to the OR and given general anesthesia with an endotracheal tube which was placed without difficulty. She was placed in dorsal lithotomy position using Yellofin stirrups. She was prepped and draped in normal sterile fashion. A Fiore catheter was placed without difficulty. Attention was then turned to her umbilicus and it was injected with 0.5% Marcaine and a 5 mm stab incision was made with a scalpel and a Veress needle was then inserted through the incision. The gas was turned on, with an opening pressure of 7 mmHg. Pneumoperitoneum was continued until 15 mmHg pressure. A 5 mm trocar was then inserted under direct visualization through the incision without difficulty. Attention was then turned to the patient's right lower quadrant where an avascular space approximately mcc between the ASIS and the umbilicus was identified. Local anesthetic was injected and a 5 mm incision was made with a scalpel. A 5 mm trocar was then inserted under direct visualization of the laparoscope. Attention was then turned to the left lower quadrant, where again an avascular portion of the abdominal wall was identified approximately mcc between the ASIS and the umbilicus. Local anesthetic was injected and a scalpel was used to make a 5 mm incision. A 5 mm trocar was inserted under direct visualization with the laparoscope. Attention was then turned to the pelvis where the uterus was visualized and noted be normal in appearance with normal appearing bilateral fallopian tubes and normal-appearing bilateral ovaries. There was a surgically absent portion of the mid portions of the bilateral fallopian tubes from previous bilateral tubal ligation. The distal ends of the fallopian tubes were normal in appearance. The atraumatic grasper was then removed from the right lower trocar and a Enseal vessel sealing device was introduced and was used to transect the right fallopian tube. The mesosalpinx connecting the right fallopian tube was transected from the ovary and underlying tissue and the fallopian tube was within removed from the abdominal cavity and sent for pathology. The right round ligament was then transected using the Enseal vessel sealing device. The utero-ovarian ligament was then transected using the Enseal vessel sealing device. The right side of the uterus and broad ligament were then transected using the Enseal vessel sealing device approximately mcc down the right broad ligament. This was repeated on the patient's left side. The fallopian tube was transected from the mesosalpinx using the Enseal vessel sealing device and this was removed through the trocar without difficulty and sent for pathology. The utero-ovarian ligament was then transected using Enseal vessel sealing device. The left round ligament was transected using Enseal vessel sealing device and the broad ligament was transected approximately mcc down the left broad ligament. The pelvis was then inspected for hemostasis at this time and hemostasis was noted. All instruments were removed from the abdomen. Attention was then turned to the patient's perineum where a weighted speculum was placed into the vagina and a Arabi retractor was used to visualize the cervix. The cervix was grasped with a double-tooth tenaculum. The cervical reflection point was then injected circumferentially with 0.25% lidocaine with epinephrine. The cervix was then circumferentially incised with a scalpel. The bladder was then dissected off the pubovesical cervical fascia anteriorly with Zuniga scissors. The same procedure was performed posteriorly and the posterior cul-de-sac was entered sharply without difficulty using Zuniga scissors. At this point, an Enseal vessel sealing device was placed over the uterosacral ligaments on the patient's left side. These were cauterized and ligated with the device. This was repeated on the patient's right side. Hemostasis was assured. The cardinal ligaments were then clamped on both sides using the Enseal vessel sealing device, cauterized and transected with the device. The uterine artery on the patient's left side and the remainder of the broad ligament were serially clamped with the Enseal vessel sealing device, cauterized and transected with the device. At this time the anterior cul-de-sac was able to be entered without difficulty. The uterine artery on the patient's right side side and the remainder of the broad ligament were then serially clamped with the Enseal vessel sealing device, cauterized and transected with the device. Excellent hemostasis was noted. The cervix and uterus was able to be delivered at this time. The posterior vaginal cuff was closed with running locked sutures of 0 Monocryl. The vaginal cuff was then closed in a horizontal fashion using running locked sutures with 0 Monocryl suture. All instruments were removed from the vagina. Attention was then turned to the abdomen where a laparoscope was inserted and was used to check for hemostasis. Hemostasis was noted at this time. Attention was then turned to the pelvis again and an Allis clamp was placed approximately 2 cm below the urethral opening. A second Allis clamp was placed 2 cm below the first Allis clamp. The vaginal mucosa was then injected with 0.25% lidocaine with epinephrine. A scalpel was used to make a midline incision through the vaginal mucosa. Zuniga scissors were used to dissect the vaginal mucosa from the underlying tissue on the patient's right side. This was carried out to the pubic rami. This was repeated on the left side and completed without difficulty. Attention was then turned to the patient's mons and the skin was injected with 0.25% lidocaine with epinephrine in the bilateral sides approximately 2 cm from midline. A stab incision was made with a scalpel on the bilateral sides without complications. The urethral sling hook was then used on the patient's left side and placed through the stab incision and with a finger in the vagina behind the pubic rami, the tip of the hook was felt and then directed out through the midline vaginal incision. Attention was then turned to the patient's right side where, again, the urethral sling hook was placed through the stab incision and with a finger in the vagina was directed posterior to the lateral pubic rami and directed through the vaginal incision. The bladder was then filled with 250 mL of sterile saline through the previously inserted urethral catheter. The urethral catheter was removed at this time. A simple cystoscopy was performed and evaluation of the bilateral bladder contreras did not show any evidence of injury. There was bilateral ureteral jetting noted with cystoscopy. The cystoscopy portion of the procedure was completed at this time. The ends of the tape was attached to the hooks and pulled through, making sure that the tape was flat under the patient's urethra. A Zuniga scissors was used between the urethral sling and urethra to allow for a tension-free placement of the tape. The ends of the tape were then cut at the level of the skin on the patient on both sides at the stab incisions. Attention was then tur abebe to the midline incision, which was closed using 3-0 Monocryl in a running fashion. The skin incisions were closed using Dermabond glue. The case was complete at this time. The gas was then evacuated from the peritoneum and trocars removed. These were closed using 4-0 Monocryl suture and Dermabond. The patient was awoken from general anesthesia and taken to the PACU for recovery in stable condition. She will be discharged to home once she is able to meet all postoperative milestones including tolerating small amount of oral intake and liquids, ambulate without difficulty, her pain controlled with oral medications and able to void without difficulty. She will follow-up in the clinic in 2 weeks or earlier as needed. Sponge, lap, needle, and instrument counts were correct x 2. Review of images from the case IMG 001: Right ovary and distal portion of the fallopian tubes that were grossly normal in appearance. Small visualized portion of the uterus and the right cornua grossly normal in appearance. IMG 002: Small portion of the large intestine and right lobe of the liver grossly normal in appearance. IMG 003: Left broad ligament surgical bed with hemostasis noted. IMG 004: Right broad ligament surgical bed with hemostasis noted. IMG 005: Vaginal cuff with hemostasis noted after hysterectomy. Ervin Lang MD 10:35 AM 09/10/2020
--- NOTE | 2020-09-10 10:45 | PCM48HPAN ---
Post Anesthesia Note - EVALUATION WITHIN 48HRS OF ANESTHETIC Vital Signs in Normal Range: Yes Patient Participated in Evaluation: Yes Respiratory Function Stable: Yes Airway Patent: Yes Cardiovascular Function Stable: Yes Hydration Status Stable: Yes Pain Control Satisfactory: Yes Nausea and Vomiting Control Satisfactory: Yes Mental Status Recovered: Yes Vital Signs: Last Vital Signs Temp 37.1 C 09/10/20 10:30 Pulse 66 09/10/20 10:30 Resp 14 09/10/20 10:30 BP 119/77 09/10/20 10:30 Pulse Ox 99 09/10/20 10:30
[2020-09-10 12:31] VITALS: BP 136/90; PULSE 72
== END 2020-09-10 12:30 | disposition home or self-care (01) ==
LOC: JD.SDS 07:17
PROVIDERS: ATTEND Obstetrics & Gynecology
DX: D06.9 Carcinoma in situ of cervix, unspecified (principal); N80.0 Endometriosis of uterus; N39.3 Stress incontinence (female) (male); I10 Essential (primary) hypertension; E78.5 Hyperlipidemia, unspecified; J45.909 Unspecified asthma, uncomplicated; E78.00 Pure hypercholesterolemia, unspecified; F17.210 Nicotine dependence, cigarettes, uncomplicated; E66.9 Obesity, unspecified; Z68.30 Body mass index [BMI] 30.0-30.9, adult; Z79.899 Other long term (current) drug therapy; Z98.890 Other specified postprocedural states
CPT/HCPCS: 36415; 57288; 58552; 81003; 81025; 86850; 86900; 86901; C1771; J0690; J1100; J1170; J1885; J2250; J2370; J2405; J2704; J2710; J3010; J3490; J7120; 00944

== ENCOUNTER 2022-02-28 14:33 | Emergency (ER) | payer BC ==
[2022-02-28 14:58] VITALS: PULSE 60
[2022-02-28 17:53] VITALS: BP 127/88
== END 2022-02-28 17:50 | disposition home or self-care (01) ==
LOC: JD.ED 14:33
DX: K62.5 Hemorrhage of anus and rectum (principal); E66.9 Obesity, unspecified; Z68.30 Body mass index [BMI] 30.0-30.9, adult; Z79.899 Other long term (current) drug therapy; Z90.49 Acquired absence of other specified parts of digestive tract
CPT/HCPCS: 36415; 74019; 74019-26; 80053; 83690; 85025; 85610; 99283

== ENCOUNTER 2022-08-04 15:41 | Emergency (ER) | payer BC ==
[2022-08-04 16:01] VITALS: BP 121/70; PULSE 60
[2022-08-04] MEDS ORDERED: Ondansetron 4 MG/2 ML SDV IVPUSH ONE (16:03)
[2022-08-04] MEDS ORDERED: Sodium Chloride 0.9% 1,000 ML IV ONE (16:03)
[2022-08-04] MEDS ORDERED: Sodium Chloride 0.9% 10 ML Syringe FLUSH PRN (16:03)
[2022-08-04] MEDS ORDERED: HYDROmorphone 1 MG/ML Syringe IVPUSH STA (16:07)
[2022-08-04 17:14] LABS: ESTIMATED GFR 81 mL/min (>60)
== END 2022-08-04 18:28 | disposition home or self-care (01) ==
LOC: JD.ED 15:41
DX: R10.12 Left upper quadrant pain (principal); E66.9 Obesity, unspecified; Z68.31 Body mass index [BMI] 31.0-31.9, adult; Z90.49 Acquired absence of other specified parts of digestive tract; Z79.899 Other long term (current) drug therapy
CPT/HCPCS: 36415; 80053; 83690; 83735; 85025; 86140; 96361; 96374; 96375; 99284; J1170; J2405; J3490; J7030; 99283

== ENCOUNTER 2022-08-11 14:08 | Emergency (ER) | payer BC ==
[2022-08-11] MEDS ORDERED: Ondansetron 4 MG/2 ML SDV IVPUSH ONE (14:56)
[2022-08-11] MEDS ORDERED: HYDROmorphone 0.5 MG/0.5 ML Syringe IVPUSH ONE (14:56)
[2022-08-11] MEDS ORDERED: Sodium Chloride 0.9% 10 ML Syringe FLUSH PRN (14:56)
[2022-08-11] MEDS ORDERED: Sodium Chloride 0.9% 1,000 ML IV SCH (15:00)
[2022-08-11 17:57] VITALS: BP 113/71; PULSE 78
== END 2022-08-11 17:47 | disposition home or self-care (01) ==
LOC: JD.ED 14:08
DX: K29.70 Gastritis, unspecified, without bleeding (principal); E66.9 Obesity, unspecified; Z68.31 Body mass index [BMI] 31.0-31.9, adult; Z79.899 Other long term (current) drug therapy
CPT/HCPCS: 36415; 80053; 83690; 85025; 96361; 96374; 96375; 99284; J1170; J2405; J3490; J7030; 99283

== ENCOUNTER 2024-01-12 16:03 | Emergency (ER) | payer BC ==
[2024-01-12 17:35] LABS: BASOPHILS ABSOLUTE AUTO 0.1 K/mm3 (0.0-0.2); BASOPHILS PERCENT AUTO 0.7 % (0.0-1.0); EOSINOPHILS ABSOLUTE AUTO 0.2 K/mm3 (0.0-0.4); EOSINOPHILS PERCENT AUTO 2.9 % (0.0-6.0); HEMATOCRIT 42.8 % (37.0-47.0); HEMOGLOBIN 14.7 gm/dl (12.0-16.0); IMMATURE GRAN ABSOLUTE AUTO 0.02 K/mm3 (0.00-0.05); IMMATURE GRAN PERCENT AUTO 0.3 % (0.0-0.4); LYMPHOCYTES ABSOLUTE AUTO 1.7 K/mm3 (1.0-4.8); LYMPHOCYTES PERCENT AUTO 22.6 % (24.0-44.0); MEAN CORPUSCULAR HEMOGLOBIN 31.7 pg (28.0-32.0); MEAN CORPUSCULAR HGB CONC 34.3 g/dl (32.0-36.0); MEAN CORPUSCULAR VOLUME 92.2 fl (83.0-99.0); MEAN PLATELET VOLUME 10.1 fl (9.4-12.3); MONOCYTES ABSOLUTE AUTO 0.5 K/mm3 (0.0-0.8); MONOCYTES PERCENT AUTO 7.3 % (0.0-8.0); NEUTROPHILS ABSOLUTE AUTO 4.9 K/mm3 (1.8-7.7); NEUTROPHILS PERCENT AUTO 66.2 % (41.0-71.0); PLATELET COUNT,PLT 236 K/mm3 (150-400); RED BLOOD CELL COUNT 4.64 M/mm3 (4.10-5.30); WHITE BLOOD CELL COUNT,WBC 7.36 K/mm3 (3.9-11.3)
[2024-01-12] MEDS: Sodium Chloride 0.9% 10 ML Syringe FLUSH ONE (17:39)
[2024-01-12] MEDS: Iopamidol 612 MG/ML 100 ML Bottle IVPUSH ONE (17:39)
[2024-01-12 17:42] LABS: A/G RATIO 1.2 (1-2); ALANINE AMINOTRANSFERASE,ALT 45 U/L (14-59); ALKALINE PHOSPHATASE 69 U/L (46-116); ANION GAP 15.1 (5-15); ASPARTATE AMNIOTRANSFERASE,AST 23 U/L (15-37); BILIRUBIN TOTAL 0.6 mg/dL (0.2-1.0); BLOOD UREA NITROGEN,BUN 11 mg/dL (7-18); BUN/CREATININE RATIO 12.2 (14-18); CALCIUM 9.2 mg/dL (8.5-10.1); CARBON DIOXIDE,CO2 23 mEq/L (21-32); CHLORIDE,CL 102 mEq/L (98-107); CREATININE 0.9 mg/dL (0.55-1.02); EST CRCL DRUG DOSING (CG) 71.03 mL/min; ESTIMATED GFR 80 mL/min (>60); GLUCOSE RANDOM 128 mg/dL (70-99); LIPASE 128 U/L (16-77); POTASSIUM,K 4.1 mEq/L (3.5-5.1); PROTEIN TOTAL,TP 7.3 g/dl (6.4-8.2); SODIUM,NA 136 mEq/L (136-145)
[2024-01-12 17:50] LABS: C-REACTIVE PROTEIN < 0.05 mg/dL (<0.30)
[2024-01-12] MEDS: Ondansetron 4 MG/2 ML SDV IVPUSH ONE (18:47)
[2024-01-12] MEDS: Alum Hydrox/Mag Hydrox/Simeth 30 ML, Lidocaine 2% 15 ML PO ONE (18:48)
[2024-01-12 19:37] VITALS: BP 101/58; PULSE 78
== END 2024-01-12 19:34 | disposition home or self-care (01) ==
LOC: JD.ED 16:03
DX: R10.12 Left upper quadrant pain (principal); E66.9 Obesity, unspecified; F17.210 Nicotine dependence, cigarettes, uncomplicated; Z79.84 Long term (current) use of oral hypoglycemic drugs; Z79.899 Other long term (current) drug therapy; Z90.49 Acquired absence of other specified parts of digestive tract; Z68.29 Body mass index [BMI] 29.0-29.9, adult
CPT/HCPCS: 36415; 74177; 80053; 83690; 85025; 86140; 96374; 99284; A9270; J2405; J3490; Q9967; 99283

== ENCOUNTER 2024-04-02 19:42 | Inpatient (IN) | payer BC, OTHER ==
[2024-04-02] MEDS: Sodium Chloride 0.9% 1,000 ML IV ONE (20:30)
[2024-04-02] MEDS: Ondansetron 4 MG/2 ML SDV IVPUSH ONE (20:30)
[2024-04-02 20:35] LABS: BASOPHILS PERCENT AUTO 0.4 % (0.0-1.0); EOSINOPHILS ABSOLUTE AUTO 0.1 K/mm3 (0.0-0.4); EOSINOPHILS PERCENT AUTO 1.5 % (0.0-6.0); HEMATOCRIT 39.7 % (37.0-47.0); HEMOGLOBIN 13.9 gm/dl (12.0-16.0); IMMATURE GRAN ABSOLUTE AUTO 0.02 K/mm3 (0.00-0.05); IMMATURE GRAN PERCENT AUTO 0.2 % (0.0-0.4); LYMPHOCYTES ABSOLUTE AUTO 1.8 K/mm3 (1.0-4.8); LYMPHOCYTES PERCENT AUTO 19.6 % (24.0-44.0); MEAN CORPUSCULAR HEMOGLOBIN 31.5 pg (28.0-32.0); MEAN PLATELET VOLUME 9.8 fl (9.4-12.3); MONOCYTES ABSOLUTE AUTO 0.6 K/mm3 (0.0-0.8); MONOCYTES PERCENT AUTO 6.5 % (0.0-8.0); NEUTROPHILS ABSOLUTE AUTO 6.4 K/mm3 (1.8-7.7); NEUTROPHILS PERCENT AUTO 71.8 % (41.0-71.0); PLATELET COUNT,PLT 177 K/mm3 (150-400); RED BLOOD CELL COUNT 4.41 M/mm3 (4.10-5.30); WHITE BLOOD CELL COUNT,WBC 8.92 K/mm3 (3.9-11.3)
[2024-04-02 20:57] LABS: A/G RATIO 1.1 (1-2); ALANINE AMINOTRANSFERASE,ALT 38 U/L (14-59); ALBUMIN 3.7 g/dl (3.4-5.0); ALKALINE PHOSPHATASE 69 U/L (46-116); ANION GAP 13.8 (5-15); ASPARTATE AMNIOTRANSFERASE,AST 17 U/L (15-37); BILIRUBIN TOTAL 0.6 mg/dL (0.2-1.0); BLOOD UREA NITROGEN,BUN 11 mg/dL (7-18); BUN/CREATININE RATIO 13.8 (14-18); C-REACTIVE PROTEIN 0.29 mg/dL (<0.30); CALCIUM 9.1 mg/dL (8.5-10.1); CARBON DIOXIDE,CO2 25 mEq/L (21-32); CHLORIDE,CL 104 mEq/L (98-107); CREATININE 0.8 mg/dL (0.55-1.02); ESTIMATED GFR 93 mL/min (>60); GLUCOSE RANDOM 104 mg/dL (70-99); LIPASE 67 U/L (16-77); POTASSIUM,K 3.8 mEq/L (3.5-5.1); PROTEIN TOTAL,TP 7.2 g/dl (6.4-8.2); SODIUM,NA 139 mEq/L (136-145)
[2024-04-02 20:58] LABS: TROPONIN I HIGH SENSITIVITY < 4 pg/mL (<=51)
[2024-04-02] MEDS: Iopamidol 612 MG/ML 100 ML Bottle IVPUSH ONE (21:42)
[2024-04-02] MEDS: Lactated Ringers 1,000 ML IV ONE (23:15)
[2024-04-02] MEDS ORDERED: Acetaminophen 325 MG Tab PO PRN (23:32)
[2024-04-02] MEDS ORDERED: Naloxone 0.4 MG/ML SDV IVPUSH PRN (23:35)
[2024-04-02] MEDS: Morphine 4 MG/ML Syringe IVPUSH PRN (23:51)
[2024-04-03] MEDS: oxyCODONE 5 MG Tab PO PRN (03:05)
[2024-04-03 07:35] LABS: BASOPHILS ABSOLUTE AUTO 0.1 K/mm3 (0.0-0.2); BASOPHILS PERCENT AUTO 0.6 % (0.0-1.0); EOSINOPHILS ABSOLUTE AUTO 0.3 K/mm3 (0.0-0.4); EOSINOPHILS PERCENT AUTO 3.6 % (0.0-6.0); HEMATOCRIT 37.6 % (37.0-47.0); HEMOGLOBIN 12.8 gm/dl (12.0-16.0); IMMATURE GRAN ABSOLUTE AUTO 0.02 K/mm3 (0.00-0.05); IMMATURE GRAN PERCENT AUTO 0.2 % (0.0-0.4); LYMPHOCYTES ABSOLUTE AUTO 2.9 K/mm3 (1.0-4.8); LYMPHOCYTES PERCENT AUTO 35.4 % (24.0-44.0); MEAN CORPUSCULAR HEMOGLOBIN 31.2 pg (28.0-32.0); MEAN CORPUSCULAR VOLUME 91.7 fl (83.0-99.0); MEAN PLATELET VOLUME 9.7 fl (9.4-12.3); MONOCYTES ABSOLUTE AUTO 0.7 K/mm3 (0.0-0.8); MONOCYTES PERCENT AUTO 7.8 % (0.0-8.0); NEUTROPHILS ABSOLUTE AUTO 4.4 K/mm3 (1.8-7.7); NEUTROPHILS PERCENT AUTO 52.4 % (41.0-71.0); PLATELET COUNT,PLT 182 K/mm3 (150-400); WHITE BLOOD CELL COUNT,WBC 8.31 K/mm3 (3.9-11.3)
[2024-04-03] MEDS: Lactated Ringers 1,000 ML IV SCH (07:54)
[2024-04-03 07:58] LABS: MAGNESIUM 1.9 mg/dL (1.8-2.4); PHOSPHORUS 3.3 mg/dL (2.6-4.7)
[2024-04-03 08:18] LABS: A/G RATIO 1.1 (1-2); ALBUMIN 3.4 g/dl (3.4-5.0); ANION GAP 14.9 (5-15); BILIRUBIN TOTAL 0.7 mg/dL (0.2-1.0); CALCIUM 8.5 mg/dL (8.5-10.1); CREATININE 0.9 mg/dL (0.55-1.02); EST CRCL DRUG DOSING (CG) 71.03 mL/min; POTASSIUM,K 3.9 mEq/L (3.5-5.1); PROTEIN TOTAL,TP 6.6 g/dl (6.4-8.2)
[2024-04-03] MEDS ORDERED: Polyethylene Glycol 3350 Powder 17 GM Packet PO PRN (08:48)
[2024-04-03] MEDS ORDERED: HYDROmorphone 0.5 MG/0.5 ML Syringe IVPUSH PRN (08:48)
[2024-04-03] MEDS: Enoxaparin 40 MG/0.4 ML Syringe SUBCUT SCH (09:45)
[2024-04-03] MEDS: Ondansetron 4 MG/2 ML SDV IV PRN (10:50)
[2024-04-03] MEDS ORDERED: 50% Dextrose in Water 50 ML Syringe IVPUSH PRN (11:59)
[2024-04-03] MEDS ORDERED: Albuterol 6.7 GM Inhaler INH PRN (12:00)
[2024-04-03] MEDS: Pantoprazole 40 MG Tab.CR PO SCH (13:03)
[2024-04-03] MEDS: Insulin Lispro 100 Unit/ML 3 ML KwikPen SUBCUT SCH (17:26)
[2024-04-03] MEDS: QUEtiapine 100 MG Tab PO SCH (20:30)
[2024-04-03] MEDS: Rosuvastatin 10 MG Tab PO SCH (20:30)
[2024-04-04 04:40] LABS: BASOPHILS PERCENT AUTO 0.4 % (0.0-1.0); EOSINOPHILS ABSOLUTE AUTO 0.2 K/mm3 (0.0-0.4); EOSINOPHILS PERCENT AUTO 4.3 % (0.0-6.0); HEMATOCRIT 35.6 % (37.0-47.0); IMMATURE GRAN ABSOLUTE AUTO 0.01 K/mm3 (0.00-0.05); IMMATURE GRAN PERCENT AUTO 0.2 % (0.0-0.4); LYMPHOCYTES ABSOLUTE AUTO 1.9 K/mm3 (1.0-4.8); LYMPHOCYTES PERCENT AUTO 36.5 % (24.0-44.0); MEAN CORPUSCULAR HEMOGLOBIN 30.5 pg (28.0-32.0); MEAN CORPUSCULAR HGB CONC 33.7 g/dl (32.0-36.0); MEAN CORPUSCULAR VOLUME 90.4 fl (83.0-99.0); MEAN PLATELET VOLUME 9.8 fl (9.4-12.3); MONOCYTES ABSOLUTE AUTO 0.5 K/mm3 (0.0-0.8); MONOCYTES PERCENT AUTO 8.9 % (0.0-8.0); NEUTROPHILS ABSOLUTE AUTO 2.6 K/mm3 (1.8-7.7); NEUTROPHILS PERCENT AUTO 49.7 % (41.0-71.0); PLATELET COUNT,PLT 141 K/mm3 (150-400); RED BLOOD CELL COUNT 3.94 M/mm3 (4.10-5.30); WHITE BLOOD CELL COUNT,WBC 5.31 K/mm3 (3.9-11.3)
[2024-04-04 05:32] LABS: ALBUMIN 3.2 g/dl (3.4-5.0); BILIRUBIN TOTAL 0.6 mg/dL (0.2-1.0); BUN/CREATININE RATIO 11.4 (14-18); CALCIUM 8.4 mg/dL (8.5-10.1); CREATININE 0.7 mg/dL (0.55-1.02); EST CRCL DRUG DOSING (CG) 91.32 mL/min; PROTEIN TOTAL,TP 6.3 g/dl (6.4-8.2)
[2024-04-04 14:29] VITALS: BP 146/84; PULSE 71
== END 2024-04-04 13:57 | disposition home or self-care (01) | DRG 282 ==
LOC: JD.ED 19:42 → JD.MS 04-03 00:08
PROVIDERS: ADMIT Student in an Organized Health Care Education/Training Program; ATTEND Student in an Organized Health Care Education/Training Program
DX: K85.90 Acute pancreatitis without necrosis or infection, unspecified (principal); F31.9 Bipolar disorder, unspecified; I71.40 Abdominal aortic aneurysm, without rupture, unspecified; K22.70 Barrett's esophagus without dysplasia; F17.210 Nicotine dependence, cigarettes, uncomplicated; E66.9 Obesity, unspecified; F15.90 Other stimulant use, unspecified, uncomplicated; F12.90 Cannabis use, unspecified, uncomplicated; E11.9 Type 2 diabetes mellitus without complications; I10 Essential (primary) hypertension; E78.5 Hyperlipidemia, unspecified; J45.909 Unspecified asthma, uncomplicated; F10.90 Alcohol use, unspecified, uncomplicated; Z90.49 Acquired absence of other specified parts of digestive tract; Z79.1 Long term (current) use of non-steroidal anti-inflammatories (NSAID); Z90.710 Acquired absence of both cervix and uterus; Z79.51 Long term (current) use of inhaled steroids; Z79.84 Long term (current) use of oral hypoglycemic drugs; Z79.899 Other long term (current) drug therapy; Z87.81 Personal history of (healed) traumatic fracture; Z85.42 Personal history of malignant neoplasm of other parts of uterus; Z98.51 Tubal ligation status; Z98.890 Other specified postprocedural states; Z68.28 Body mass index [BMI] 28.0-28.9, adult
CPT/HCPCS: 36415; 74177; 74177-26; 80053; 80061; 82947; 83690; 83735; 84100; 84484; 85025; 86140; 93005; 93010; 96361; 96374; 96375; 99284; 99285-25; A9270-GY; J1650; J2270; J2405; J7030; J7120; Q9967

== ENCOUNTER 2024-06-08 15:26 | Emergency (ER) | payer BC ==
[2024-06-08] MEDS ORDERED: Sodium Chloride 0.9% 10 ML Syringe FLUSH PRN (15:56)
[2024-06-08] MEDS: Ondansetron 4 MG/2 ML SDV IVPUSH ONE (16:05)
[2024-06-08] MEDS: Sodium Chloride 0.9% 1,000 ML IV STA (16:06)
[2024-06-08] MEDS: HYDROmorphone 0.5 MG/0.5 ML Syringe IVPUSH ONE (16:06)
[2024-06-08 16:08] LABS: BASOPHILS PERCENT AUTO 0.3 % (0.0-1.0); EOSINOPHILS ABSOLUTE AUTO 0.2 K/mm3 (0.0-0.4); EOSINOPHILS PERCENT AUTO 2.2 % (0.0-6.0); HEMATOCRIT 40.4 % (37.0-47.0); HEMOGLOBIN 13.5 gm/dl (12.0-16.0); IMMATURE GRAN ABSOLUTE AUTO 0.04 K/mm3 (0.00-0.05); IMMATURE GRAN PERCENT AUTO 0.4 % (0.0-0.4); LYMPHOCYTES ABSOLUTE AUTO 1.6 K/mm3 (1.0-4.8); LYMPHOCYTES PERCENT AUTO 17.3 % (24.0-44.0); MEAN CORPUSCULAR HEMOGLOBIN 30.9 pg (28.0-32.0); MEAN CORPUSCULAR HGB CONC 33.4 g/dl (32.0-36.0); MEAN CORPUSCULAR VOLUME 92.4 fl (83.0-99.0); MEAN PLATELET VOLUME 9.9 fl (9.4-12.3); MONOCYTES ABSOLUTE AUTO 0.5 K/mm3 (0.0-0.8); MONOCYTES PERCENT AUTO 5.1 % (0.0-8.0); NEUTROPHILS PERCENT AUTO 74.7 % (41.0-71.0); PLATELET COUNT,PLT 191 K/mm3 (150-400); RED BLOOD CELL COUNT 4.37 M/mm3 (4.10-5.30)
[2024-06-08] MEDS: Iopamidol 755 Mg/ML 100 ML Bottle IVPUSH ONE (16:16)
[2024-06-08] MEDS: Sodium Chloride 0.9% 10 ML Syringe FLUSH ONE (16:16)
[2024-06-08 16:30] LABS: A/G RATIO 1.1 (1-2); ALBUMIN 3.6 g/dl (3.4-5.0); ANION GAP 9.9 (5-15); BILIRUBIN TOTAL 0.5 mg/dL (0.2-1.0); BUN/CREATININE RATIO 12.5 (14-18); CALCIUM 8.9 mg/dL (8.5-10.1); CREATININE 0.8 mg/dL (0.55-1.02); EST CRCL DRUG DOSING (CG) 75.88 mL/min; POTASSIUM,K 3.9 mEq/L (3.5-5.1); PROTEIN TOTAL,TP 6.9 g/dl (6.4-8.2)
[2024-06-08 17:22] VITALS: BP 125/73; PULSE 95
== END 2024-06-08 18:40 | disposition home or self-care (01) ==
LOC: JD.ED 15:26
DX: R10.12 Left upper quadrant pain (principal); R11.2 Nausea with vomiting, unspecified; F17.210 Nicotine dependence, cigarettes, uncomplicated; E66.9 Obesity, unspecified; Z68.29 Body mass index [BMI] 29.0-29.9, adult; Z90.49 Acquired absence of other specified parts of digestive tract; Z79.51 Long term (current) use of inhaled steroids; Z79.84 Long term (current) use of oral hypoglycemic drugs; Z79.899 Other long term (current) drug therapy
CPT/HCPCS: 36415; 74177; 80053; 83690; 85025; 96361; 96374; 96375; 99284; J2405; J7030; Q9967; 99283